=== PATIENT | female | born 1960 | race Caucasian/White ===

== ENCOUNTER 2017-03-23 09:15 | Outpatient (CLI) | payer BC ==
[2017-03-23 09:29] LABS: BASOPHILS % 1.4 (0.0-1.5); EOSINOPHILS % 9.4 % (0.0-6.8); MEAN CORPUSCULAR HEMOGLOBIN 29.2 pg (28.0-34.0); MEAN CORPUSCULAR VOLUME 86.7 fl (80.0-100.0); NEUTROPHILS # 2.9 # k/uL (1.4-7.7)
[2017-03-23 10:02] LABS: eGFR (African) > 60; eGFR (Non-African) > 60
== END 2017-03-23 09:16 ==
LOC: LAB 09:15
PROVIDERS: ATTEND Internal Medicine
DX: E78.5 Hyperlipidemia, unspecified (principal); E03.9 Hypothyroidism, unspecified
CPT/HCPCS: 36415; 80053; 80061; 84439; 84443; 85025